=== PATIENT | male | born 1950 | race Caucasian/White ===

== ENCOUNTER → 2019-12-29 13:56 | Outpatient (CLI) | payer MEDICARE, SELFPAY ==
--- NOTE | 2019-12-29 | DI.MRI.S_ITS ---
PROCEDURE: MR ABDOMEN WO/W CON INDICATIONS: Abnormal findings on diagnostic imaging of liver. TECHNIQUE: Coronal HASTE, axial 2D FLASH in- and [id number]; axial breath-hold T2 FSE. Dynamic axial VIBE during the administration of contrast; post-contrast coronal VIBE or 2D FLASH with fat saturation from the hepatic dome to the iliac crests. Optional diffusion weighted imaging and ADC may be performed. COMPARISON: [facility], [place], CT ABDOMEN/PELVIS WITH CONTRAST, 12/17/2019, 16:25. FINDINGS: Image quality: Excellent. Lung bases: No basal pleural effusions. Heart size is normal. Solid organs: Multiple oval T1 hypointense and T2 hyperintense oval lesions are redemonstrated throughout the liver as seen on the recent CT. and the largest, within the right hepatic dome in segment 7 measures up to 2.4 x 1.7 cm in transverse dimension. This lesion demonstrates hypervascular enhancement on the arterial phase with associated vascular shunting. There is persistent hypervascularity on the portal venous and delayed phases. Arterial phase hyperenhancement is also demonstrated within a few other lesions including a segment 8 lesion measuring 1.1 x 1.1 cm which demonstrates persistent hyperintense enhancement on the portal venous and delayed phases. These imaging findings are consistent with hemangiomas. Several of the other lesions demonstrate mild peripheral enhancement on the arterial and portal venous phases with relative hypoenhancement centrally. On the delayed phase, there is isointense enhancement through the liver. The findings are nonspecific but also likely represent hemangiomas. The smaller lesions predominantly demonstrate isointense enhancement to the liver. No definite areas of washout identified. There are a few small scattered nonenhancing cysts in the liver measuring up to 0.3 cm. The gallbladder is nondistended. Biliary system is non dilated. Pancreas is normal in morphology without a discrete pancreatic mass identified. Spleen is normal in size and enhancement. No adrenal nodules. Both kidneys demonstrate normal size and enhancement, without hydronephrosis. Nodes and vessels: No retroperitoneal or mesenteric adenopathy by size criteria. Aorta and inferior vena cava are normal in size. Bowel and peritoneum: Visualized bowel loops are normal in caliber. No free fluid. Bones and soft tissues: No ventral hernias. Bone marrow is normal in overall signal. IMPRESSION: 1. Multiple hepatic lesions redemonstrated throughout the liver. Although these demonstrate similar signal intensity, there are differences in enhancement with some of the lesions demonstrating persistent hypervascular enhancement compatible with hemangiomas. Other lesions demonstrate mild peripheral enhancement with hypoenhancement centrally on the arterial and portal venous phases but isointense enhancement on delayed imaging. No definite areas of abnormal washout. These also likely represent hemangiomas. Differential includes hepatic adenomas among other etiologies which are considered less likely. Hepatocellular carcinoma is also less likely in the absence of washout. Dictated by: Demario Iglesias M.D. on 12/30/2019 at 14:09 Approved by: Demario Iglesias M.D. on 12/30/2019 at 14:55
== END ==
PROVIDERS: PCP Registered Nurse; Referring Provider Registered Nurse; Visit Provider Registered Nurse
DX: K76.9 Liver disease, unspecified (principal); R93.2 Abnormal findings on diagnostic imaging of liver and biliary tract
CPT/HCPCS: 74183; A9579

== ENCOUNTER → 2020-01-22 13:24 | Outpatient (CLI) | payer MEDICARE, SELFPAY ==
[2020-01-23 02:16] LABS: COVID19 Sendout Not Detected (Not Detect)
== END ==
PROVIDERS: PCP Registered Nurse; Visit Provider Physician Assistant
DX: Z01.818 Encounter for other preprocedural examination (principal)
CPT/HCPCS: 87635